=== PATIENT | male | born 1990 | race Caucasian/White ===

== ENCOUNTER 2018-07-17 15:41 | Outpatient (RCR) | payer OTHER, SELFPAY ==
--- NOTE | 2018-07-17 17:33 | PT.OIE ---
Current Diagnoses Pain in left knee (07/17/18) Provider Visit Care Team Role Provider Type GABRIELLA Jose Attending Provider Advanced Board Turner Primary Care Provider Specialty: Family Practice Address: [address] [place] [address], [facility] [place], [address] Email: [email or web address] Physical Therapy Initial Evaluation PT-OP-A Visit Information Start: 07/17/18 16:54 Freq: Status: Active Protocol: Document 07/17/18 16:00 HH (Rec: 07/17/18 17:33 HH [email or web address]) Out-Patient Physical Therapy Visit Information Visit Information Visit Type Initial Evaluation Visit Start Time 16:00 Visit Stop Time 16:45 Total Visit Minutes 45 Visit Number [id number] Number of BED SETTER Visits 0 Evaluation Information Evaluation Date 07/17/18 PT-OP-B Current Condition Start: 07/17/18 16:54 Freq: Status: Active Protocol: Document 07/17/18 16:00 HH (Rec: 07/17/18 17:33 HH [email or web address]) Current Condition History of Current Condition Onset Date 8 years ago Current Complaints L knee and ankle pain, difficulty in running and lifting History of Current Condition Pt had a severe ankle injury in 2011 while playing basketball. Pt dislocated his L ankle after a jump which he had to use a walker boot for 6 months after injury. Pt reports his L knee and ankle pain started every since then. Pt stated he has been having difficulty in doing exercises such as running, squatting, jumping who described his knee is very heavy and sore all the time. Basically doing exercise that more than his BW will excerbate his symptoms. Also stated Heat and rest help the most but ice will cause his muscles and knee joint tighter and stiff. Pt recently started to return to running as workout rountine but he c/o his knee pain starts after 100 yard. Pt has not had any x -ray and MRI screening. Prior Treatments and Tests did not have therapy before Treatment Goals Patient/Caregiver Goals 1. able to run 2miles 3times a week 2. able to run 2 miles under 14 minutes Prior Functional Status Baseline Function- ADL's Independent Baseline Function- Mobility Independent Current Functional Impairments (Reported) Functional Limitations- Work/School lifting heavy objects from the floor causes pain Functional Limitations- Recreation/ Pt recently started to return Hobbies to running as workout rountine but he c/o his knee pain starts after 100 yard PT-OP-C Subjective Start: 07/17/18 16:54 Freq: Status: Active Protocol: Document 07/17/18 16:00 HH (Rec: 07/17/18 17:33 [email or web address]) OP-PT Subjective Patient Comments Patient Comments I want to be able to run without knee pain. Patient Questionnaires Lower Extremity Functional Scale LEFS Score 57 LEFS Impairment 20 to 39% Impaired (Score 48- 62) PT-OP-F Manual Assessment Start: 07/17/18 16:54 Freq: Status: Active Protocol: Document 07/17/18 16:00 HH (Rec: 07/17/18 17:33 [email or web address]) Manual Assessments Soft Tissue Assessment Soft Tissue Mobility Assessment significant tenderness to pressure on L anterior tib, gastro complex Joint Mobility Assessment Joint Mobility Assessment reduced L calcaneal eversion PT-OP-G Mobility & Gait Start: 07/17/18 16:54 Freq: Status: Active Protocol: Document 07/17/18 16:00 HH (Rec: 07/17/18 17:33 HH [email or web address]) OP Gait Assessment Comments Gait Comments mild R hip drop during RLE swing phase in walking and jogging. Increased L ankle pronation during LLE stance phase PT-OP-J Posture/Palpation/Skin Start: 07/17/18 16:54 Freq: Status: Active Protocol: Document 07/17/18 16:00 HH (Rec: 07/17/18 17:33 [email or web address]) Posture Evaluation Position Standing Evaluation View Posterior Head/C-Spine Posture Forward Head T-Spine Posture Increased Kyphosis Pelvis Posture Anteriorly Tilted Weight Distribution Weight Shifted Right Hip Posture (L) Externally Rotated Knee Posture (L) Ext. Tibial Torsion (L) Excess Flexion Ankle/Foot Posture (R) Neutral (L) Supinated (L) Calcaneal Inversion Foot Arch (L) High Arch (R) Medium Arch PT-OP-K Range of Motion Start: 07/17/18 16:54 Freq: Status: Active Protocol: Document 07/17/18 16:00 HH (Rec: 07/17/18 17:33 [email or web address]) Knee Goniometric Range of Motion Knee Measured in Degrees Right Knee ROM WFL Yes Patient Position Supine Flexion Active (degrees) 140 Extension Active (degrees) 0 Left Knee ROM WFL Yes Patient Position Supine Flexion Active (degrees) 140 Extension Active (degrees) 2 Ankle and Foot Goniometric Range of Motion Ankle and Foot Measured in Degrees Right Active Ankle/Foot ROM WFL Yes Testing Position Supine Dorsiflexion with Knee Extended 20 Plantarflexion 60 Inversion 25 Eversion 15 Left Active Ankle/Foot ROM WFL Yes Testing Position Supine Dorsiflexion with Knee Extended 10 Plantarflexion 60 Inversion 20 Eversion 15 PT-OP-L Special Tests Start: 07/17/18 16:54 Freq: Status: Active Protocol: Document 07/17/18 16:00 (Rec: 07/17/18 17:33 [email or web address]) Special Tests Knee Special Tests Anterior Draw Test Results -ve Varus- 0 Degrees Test Results -ve Valgus- 25 Degrees Test Results -ve Varus- 25 Degrees Test Results -ve Valgus- 0 Degrees Test Results -ve Norberto Test Test Results -ve Apley's Compression Test Results -ve Brannon's Sign Test Results +ve Comments on L -ve on R Other Special Tests Special Tests squat = increaesd L knee valgus, signficant anterior weight shift Libyan DeadLift = significant ankle instability during single leg stance. PT-OP-M Strength Start: 07/17/18 16:54 Freq: Status: Active Protocol: Document 07/17/18 16:00 (Rec: 07/17/18 17:33 [email or web address]) Hip Strength Hip Manual Muscle Testing Right Flexion (L2) 5 Normal Extension (S1) 5 Normal Abduction 5 Normal Adduction 5 Normal Left Flexion (L2) 4- Good- Extension (S1) 4- Good- Abduction 4- Good- Adduction 4+ Good+ Knee Strength Knee Manual Muscle Testing Right Flexion (S2) 5 Normal Extension (L3) 5 Normal Left Flexion (S2) 3+ Fair+ Extension (L3) 4- Good- Ankle/Foot Strength Ankle and Foot Manual Muscle Testing Right Dorsiflexion (L4) 5 Normal Plantarflexion (S1) 5 Normal Inversion 5 Normal Eversion (S1) 5 Normal Left Dorsiflexion (L4) 3+ Fair+ Plantarflexion (S1) 3+ Fair+ Inversion 4 Good Eversion (S1) 3+ Fair+ PT-OP-Q Treatments Start: 03/22/19 16:54 Freq: Status: Active Protocol: Document 07/17/18 16:00 HH (Rec: 07/17/18 17:33 [email or web address]) Therapeutic Exercises Standing Exercises standing TKE Side right Equipment Used level 4 band Reps/Minutes 10 secs hold x 10 Comments L LE slight turning and beading machine operator to facilitate VMO RDL Standing Exercise Name single leg stance with RDL Side right Reps/Minutes 10 x 5 Comments cues on neutral foot and knee alignment, hip hinge, Manual Therapy Treatment Soft Tissue Mobilization L gastro complex Mobilization Type Strumming Sustained Pressure Trigger Point Release Intensity/Depth Moderate Body Position Supine L ant tib Mobilization Type Cross-Friction Strumming Sustained Pressure Trigger Point Release Intensity/Depth Moderate Body Position Supine PT-OP-T Assessment and Plan Start: 07/17/18 16:54 Freq: Status: Active Protocol: Document 07/17/18 16:00 (Rec: 07/17/18 17:33 [email or web address]) Physical Therapy Assessment Rehab Potential Rehabilitation Potential Excellent Evaluation Complexity Number of Personal Factors/Comorbidities 0 Number of Body Systems Impaired 1-2 Clinical Presentation at Evaluation Stable Impairments Impairments Activity Tolerance Functional Activities Functional Mobility Gait Pain Posture ROM Soft Tissue Mobility Strength Goals HEP Impairment pt does not have a HEP Longterm Goal (LTG) Pt will be able to comply to HEP daily to optimize his rehab outcome LTG Duration 6 weeks Running time Impairment increased time for a mile run Longterm Goal (LTG) to improve his time for a mile to 10 mins without symptoms LTG Duration 12 weeks strength Impairment impaired L hip, knee and ankle strength Short Term Goal (STG) Improve his overall LLE strength by 1/2 MMT to increase his stability of pelvis for running STG Duration 6 weeks Oven Equipment Repairer Goal (LTG) Improve his overall LLE strength by 1 MMT to increase his stability of pelvis for running LTG Duration 12 weeks LEFS Impairment LEFS score 57 (20-39 % impairment) Oven Equipment Repairer Goal (LTG) Improve his LEFS score to 0% to be able to run without pain and discomfort. LTG Duration 12 weeks Assessment Summary Assessment Pt is a 27 yo male presented to clinic with chronic L knee and ankle pain since 8 years after dislocation his ankle while playing basketball. Upon assessment, pt presents significant ROM loss on L ankle (DF> Inversion) and strength loss on LLE ( ankle > hip> knee) possibly due to his previous injury. Pt is positive with Arroyo's test but negative on ligament stress test and other joint structures. During static standing posture, pt primarily WB on his R LE with his L knee flexed and external rotated L tibia and L high foot arch. In dynamic movement assessment, pt presents a R hip drop during walking and running, and knee valgus during squat and RDL. Pt demonstrates significant L ankle and hip instability overall which possibly increase biomechanical stress on L knee. Pt will benefit from skilled PT for postural training, ankle and hip stability training , return to sport training, NM reeducation and overall LE strengthening. Physical Therapy Plan Frequency and Duration Frequency of Treatment 2x/Week Duration of Treatment 12 Plan of Care Start Date 07/17/18 Plan of Care End Date 10/17/18 Therapeutic Interventions Therapeutic Interventions Balance Training Gait Training Home Exercise Program Joint Mobilizations Manual Therapy Neuromuscular Re-education Patient/Caregiver Education Self-Care/Home Management Soft Tissue Mobilization Taping Therapeutic Activities Therapeutic Exercises Modalities Hot Packs Next Visit Focus/Plan Next Note Type Treatment Note Next Visit Plan Review RDL, TKE L ankle ROM, stability and strengthening single leg balance training L hip strengthening
--- NOTE | 2018-09-30 15:23 | PT.OPDS ---
Current Diagnoses Pain in left knee (07/17/18) Provider Visit Care Team Role Provider Type GABRIELLA Jose Attending Provider Advanced Step Down Nurse Primary Care Provider Specialty: Family Practice Address: [address] [place] [address], [facility] [place], [address] Email: [email or web address] Visit Number Visit Number Discharge Summary PT-OP-B Current Condition Start: 07/17/18 16:54 Freq: Status: Active Protocol: Document 07/17/18 16:00 HH (Rec: 07/17/18 17:33 HH [email or web address]) Current Condition History of Current Condition Onset Date 8 years ago Current Complaints L knee and ankle pain, difficulty in running and lifting History of Current Condition Pt had a severe ankle injury in 2011 while playing basketball. Pt dislocated his L ankle after a jump which he had to use a walker boot for 6 months after injury. Pt reports his L knee and ankle pain started every since then. Pt stated he has been having difficulty in doing exercises such as running, squatting, jumping who described his knee is very heavy and sore all the time. Basically doing exercise that more than his BW will excerbate his symptoms. Also stated Heat and rest help the most but ice will cause his muscles and knee joint tighter and stiff. Pt recently started to return to running as workout rountine but he c/o his knee pain starts after 100 yard. Pt has not had any x -ray and MRI screening. Prior Treatments and Tests did not have therapy before Treatment Goals Patient/Caregiver Goals 1. able to run 2miles 3times a week 2. able to run 2 miles under 14 minutes Prior Functional Status Baseline Function- ADL's Independent Baseline Function- Mobility Independent Current Functional Impairments (Reported) Functional Limitations- Work/School lifting heavy objects from the floor causes pain Functional Limitations- Recreation/ Pt recently started to return Hobbies to running as workout rountine but he c/o his knee pain starts after 100 yard PT-OP-C Subjective Start: 07/17/18 16:54 Freq: Status: Active Protocol: Document 09/30/18 15:23 HH (Rec: 09/30/18 15:23 HH [email or web address]) OP-PT Subjective Patient Comments Patient Comments Im doing much better after doing all my PT exercises from the first visit. I dont have knee pain at this point. Patient Reported Progress Improving PT-OP-F Manual Assessment Start: 07/17/18 16:54 Freq: Status: Active Protocol: Document 07/17/18 16:00 HH (Rec: 07/17/18 17:33 [email or web address]) Manual Assessments Soft Tissue Assessment Soft Tissue Mobility Assessment significant tenderness to pressure on L anterior tib, gastro complex Joint Mobility Assessment Joint Mobility Assessment reduced L calcaneal eversion PT-OP-G Mobility & Gait Start: 07/17/18 16:54 Freq: Status: Active Protocol: Document 07/17/18 16:00 HH (Rec: 07/17/18 17:33 [email or web address]) OP Gait Assessment Comments Gait Comments mild R hip drop during RLE swing phase in walking and jogging. Increased L ankle pronation during LLE stance phase PT-OP-J Posture/Palpation/Skin Start: 07/17/18 16:54 Freq: Status: Active Protocol: Document 07/17/18 16:00 HH (Rec: 07/17/18 17:33 [email or web address]) Posture Evaluation Position Standing Evaluation View Posterior Head/C-Spine Posture Forward Head T-Spine Posture Increased Kyphosis Pelvis Posture Anteriorly Tilted Weight Distribution Weight Shifted Right Hip Posture (L) Externally Rotated Knee Posture (L) Ext. Tibial Torsion (L) Excess Flexion Ankle/Foot Posture (R) Neutral (L) Supinated (L) Calcaneal Inversion Foot Arch (L) High Arch (R) Medium Arch PT-OP-K Range of Motion Start: 07/17/18 16:54 Freq: Status: Active Protocol: Document 07/17/18 16:00 HH (Rec: 07/17/18 17:33 [email or web address]) Knee Goniometric Range of Motion Knee Measured in Degrees Right Knee ROM WFL Yes Patient Position Supine Flexion Active (degrees) 140 Extension Active (degrees) 0 Left Knee ROM WFL Yes Patient Position Supine Flexion Active (degrees) 140 Extension Active (degrees) 2 Ankle and Foot Goniometric Range of Motion Ankle and Foot Measured in Degrees Right Active Ankle/Foot ROM WFL Yes Testing Position Supine Dorsiflexion with Knee Extended 20 Plantarflexion 60 Inversion 25 Eversion 15 Left Active Ankle/Foot ROM WFL Yes Testing Position Supine Dorsiflexion with Knee Extended 10 Plantarflexion 60 Inversion 20 Eversion 15 PT-OP-L Special Tests Start: 07/17/18 16:54 Freq: Status: Active Protocol: Document 07/17/18 16:00 HH (Rec: 07/17/18 17:33 [email or web address]) Special Tests Knee Special Tests Anterior Draw Test Results -ve Varus- 0 Degrees Test Results -ve Valgus- 25 Degrees Test Results -ve Varus- 25 Degrees Test Results -ve Valgus- 0 Degrees Test Results -ve Norberto Test Test Results -ve Apley's Compression Test Results -ve Brannon's Sign Test Results +ve Comments on L -ve on R Other Special Tests Special Tests squat = increaesd L knee valgus, signficant anterior weight shift Kyrgy[place] DeadLift = significant ankle instability during single leg stance. PT-OP-M Strength Start: 07/17/18 16:54 Freq: Status: Active Protocol: Document 07/17/18 16:00 HH (Rec: 07/17/18 17:33 [email or web address]) Hip Strength Hip Manual Muscle Testing Right Flexion (L2) 5 Normal Extension (S1) 5 Normal Abduction 5 Normal Adduction 5 Normal Left Flexion (L2) 4- Good- Extension (S1) 4- Good- Abduction 4- Good- Adduction 4+ Good+ Knee Strength Knee Manual Muscle Testing Right Flexion (S2) 5 Normal Extension (L3) 5 Normal Left Flexion (S2) 3+ Fair+ Extension (L3) 4- Good- Ankle/Foot Strength Ankle and Foot Manual Muscle Testing Right Dorsiflexion (L4) 5 Normal Plantarflexion (S1) 5 Normal Inversion 5 Normal Eversion (S1) 5 Normal Left Dorsiflexion (L4) 3+ Fair+ Plantarflexion (S1) 3+ Fair+ Inversion 4 Good Eversion (S1) 3+ Fair+ PT-OP-T Assessment and Plan Start: 07/17/18 16:54 Freq: Status: Active Protocol: Document 09/30/18 15:21 HH (Rec: 09/30/18 15:22 [email or web address]) Physical Therapy Plan Discharge Physical Therapy Discharge Reasons Patient Request Discharge Comments Called pt via phone. Pt states he is back to PLOF without experiencing knee pain. Requested to be D/c from PT.
== END 2018-10-09 10:35 | disposition home or self-care (01) ==
LOC: PHYS 15:41
PROVIDERS: PCP Internal Medicine; Visit Provider Internal Medicine
DX: M25.562 Pain in left knee (principal)
CPT/HCPCS: 97140; 97162

== ENCOUNTER → 2018-11-27 15:07 | Outpatient (CLI) | payer OTHER, SELFPAY ==
--- NOTE | 2018-11-27 15:09 | DI.RAD.S_ITS ---
PROCEDURE: XR ANKLE LT MIN 3V INDICATIONS: left lateral ankle pain TECHNIQUE: 3 views of the ankle were acquired. COMPARISON: None. FINDINGS: Bones: No fractures or dislocations. Ankle mortise is normally aligned. No suspicious bony lesions. Chronic ossicle projects just to the tip of the lateral malleolus. Tibiotalar degenerative spurring Soft tissues: No tibiotalar joint effusion. Achilles tendon appears normal. Lateral soft tissue swelling IMPRESSION: Sub-5 mm ossicle projects adjacent to the lateral malleolus although this appears chronic radiographically. Elsewhere, no acute fracture. If the patient's symptoms do not improve recommend followup radiographs in 10 days to assess for healing sclerosis/occult injury. Mild degenerative spurring. Lateral soft tissue swelling. Dictated by: Marlo Lopez M.D. on 11/27/2018 at 15:34 Approved by: Marlo Lopez M.D. on 11/27/2018 at 15:36
== END ==
PROVIDERS: PCP Internal Medicine; Visit Provider Physician Assistant
DX: M25.572 Pain in left ankle and joints of left foot (principal)
CPT/HCPCS: 73610

== ENCOUNTER 2019-10-15 16:09 | Emergency (ER) | payer OTHER, SELFPAY ==
[2019-10-15 16:30] VITALS: BP 134/80; PULSE 81; RESP 14; O2SAT 98; BMI 30.8
--- NOTE | 2019-10-15 16:50 | DI.CT.S_ITS ---
PROCEDURE: CT ABDOMEN PELVIS W CON INDICATIONS: right lower quadrant pain TECHNIQUE: After the administration of intravenous contrast, 5 mm thick sections acquired from the diaphragm to the symphysis. 5 mm coronal and sagittal reformats were acquired. For radiation dose reduction, the following was used: automated exposure control, adjustment of mA and/or kV according to patient size. COMPARISON: None. FINDINGS: Image quality: Excellent. ABDOMEN: Lung bases: Lung bases are clear. Heart size is normal. Solid organs: Liver is normal in size and enhancement. Gallbladder appears normal. Biliary system is non dilated. Pancreas enhances normally. Spleen is normal in size and enhancement. No adrenal nodules. Kidneys demonstrate normal size and enhancement, without hydronephrosis. Peritoneum and bowel: Bowel loops demonstrate normal wall thickness and caliber. No free fluid or air. Nodes and vessels: No retroperitoneal or mesenteric adenopathy by size criteria. Aorta and inferior vena cava are normal in size. Miscellaneous: No ventral hernias. PELVIS: Genitourinary: Bladder wall thickness is normal. Miscellaneous: No inguinal hernias or adenopathy. Bones: No suspicious bony lesions. No vertebral body compression fractures. IMPRESSION: A source of reported pain in knee right lower quadrant is not identified. A normal appendix is found, with origin from the cecum medial to the inferior cecal tip series 2 image 49. There is no sign of diverticulitis and no suspicion for referred pain from the urinary tract or spine. Dictated by: Hola Rollins M.D. on 10/15/2019 at 16:45 Approved by: Hola Rollins M.D. on 10/15/2019 at 16:47
[2019-10-15 16:56] LABS: Add Manual Diff / Slide Review NO; Basophils Absolute Auto 0 /uL (0-100); Basophils Percent Auto 0.3 % (0-2); Eosinophils Absolute Auto 300 /uL (0-450); Eosinophils Percent Auto 2.4 % (2-4); Hematocrit 38.9 % (41-53); Hemoglobin 13.9 g/dL (13.5-17.5); Lymphocytes Absolute Auto 2400 /uL (1100-4500); Lymphocytes Percent Auto 20.9 % (25-40); Mean Corpuscular HGB Conc 35.8 % (30-36); Mean Corpuscular Hemoglobin 32.8 PG (26-34); Mean Corpuscular Volume 91.8 fL (80-100); Monocytes Absolute Auto 1400 /uL (0-900); Monocytes Percent Auto 12.5 % (3-14); Neutrophils Absolute Auto 7200 /uL (1500-7000); Neutrophils Percent Auto 63.9 % (50-75); Platelet Count 286 X10^3/uL (150-400); Red Blood Cell Count 4.24 X10^6/uL (4.5-5.9); Red Cell Distribution Width 12.5 % (11.6-14.8); White Blood Cell Count 11.3 X10^3/uL (4.5-11.0)
[2019-10-15 17:03] LABS: INR 1.1 (0.9-1.3); Prothrombin Time 12.7 SECONDS (10.1-12.7)
[2019-10-15 17:06] LABS: PTT Partial Thromboplastin Tim 34 SECONDS (26.4-36.2)
[2019-10-15 17:08] LABS: Alanine Aminotransferase 69 IU/L (<50); Albumin 4.7 g/dL (3.5-5.0); Albumin Globulin Ratio 1.4 (1.0-2.8); Alkaline Phosphatase 75 U/L (38-126); Aspartate Aminotransferase 42 IU/L (17-59); BUN Creatinine Ratio 14.9 (6-22); Bilirubin Total 0.4 mg/dL (0.2-1.3); Blood Urea Nitrogen 17 mg/dL (9-20); Calcium 9.7 mg/dL (8.4-10.2); Carbon Dioxide 29 mmol/L (22-32); Chloride 101 mmol/L (98-107); Estimated Glomerular Filt Rate > 60.0 mL/min (>60); Globulin 3.4 g/dL (1.7-4.1); Glucose 85 mg/dL (70-100); HEMOLYSIS < 15 (0-50); Lipase 50 U/L (23-300); Potassium 3.9 mmol/L (3.4-5.1); Sodium 138 mmol/L (137-145); Total Protein 8.1 g/dL (6.3-8.2)
--- NOTE | 2019-10-15 20:06 | ED_ITS ---
HPI - Abdominal Pain General Chief Complaint: Abdominal Pain Stated Complaint: right side abdominal pain x3 days Time Seen by Provider: 10/15/19 19:59 Source: patient Mode of arrival: Ambulatory Limitations: no limitations History of Present Illness HPI narrative: 29-year-old male nonsmoker with history of hypothyroidism presents with his in the chief complaint of right lower quadrant pain with some radiation to his back for the past 3 days. He states it is probably a bit worse today than it had been a few days ago and does not recall much about its onset. It is worse when he moves and improves with rest. He denies any dysuria, frequency or urgency. He has had no nausea, vomiting or diarrhea. He has had no change in appetite. He denies any groin or testicular pain. MD complaint: abdominal pain Onset (ago): day(s) Pain Consistency: constant Location: RLQ Severity: moderate Quality: cramping and aching Radiation: R flank Relieving factors: rest Exacerbating factors: movement Associated symptoms: nausea Related Data Home Medications Medication Instructions Recorded Confirmed levothyroxine PO 11/27/18 11/27/18 Previous Rx's Medication Instructions Recorded ketorolac 10 mg PO Q6H PRN #14 tab 10/15/19 Allergies Allergy/AdvReac Type Severity Reaction Status Date / Time No Known Drug Allergies Allergy Verified 10/15/19 16:30 Review of Systems Constitutional Constitutional: Denies chills, Denies fatigue, Denies fever(s), Denies frequent falls, Denies lethargy and Denies weakness Eyes Eyes: Denies change in vision, Denies eye discharge, Denies irritation and Denies loss of vision ENT Ears, Nose, Mouth, and Throat: Denies change in voice, Denies dizziness, Denies neck pain, Denies sore throat and Denies throat swelling Cardiovascular Cardiovascular: Denies chest pain, Denies irregular heart rhythm, Denies lightheadedness, Denies palpitations, Denies dyspnea, Denies dyspnea on exertion and Denies orthopnea Respiratory Respiratory: Denies cough, Denies dyspnea, Denies dyspnea on exertion and Denies wheezing Gastrointestinal Gastrointestinal: Reports abdominal pain, Denies change in bowel habits, Denies diarrhea, Denies nausea and Denies vomiting Genitourinary Genitourinary: Reports flank pain Genitourinary: Reports flank pain Musculoskeletal Musculoskeletal: Denies neck pain and Denies numbness Integumentary/Breasts Skin/Breast: Denies pruritus, Denies erythema, Denies rash and Denies wounds Neurologic Neurologic: Denies behavioral changes, Denies confusion, Denies dizziness, Denies frequent falls, Denies loss of vision, Denies numbness and Denies weakness Psychiatric Psychiatric: Denies anxiety, Denies behavioral changes, Denies confusion, Denies depression, Denies homicidal ideation and Denies suicidal ideation Endocrine Endocrine: Denies fatigue, Denies flushing and Denies palpitations Hematologic/Lymphatic Hematologic/Lymphatic: Denies easy bruising Allergic/Immunologic Allergic/Immunologic: Denies urticaria, Denies throat swelling and Denies wheezing Patient History Social History Smoking Status: Never smoker Smoking Status: Never smoker alcohol intake frequency: a few times a month Substance Use Type: does not use Exam Narrative Exam Narrative: GENERAL: [29] year old patient appears stated age. Well-nouris hed, well-developed patient, in mild distress. HEAD: Atraumatic. Normocephalic. EYES: Pupils equal round and reactive. Extraocular motions intact. No scleral icterus. No injection or drainage. ENT: Nose without bleeding, purulent drainage. Throat without erythema, tonsillar hypertrophy or exudate. Airway patent. NECK: Trachea midline. Non tender CARDIOVASCULAR: Regular rate and rhythm without murmurs, gallops, or rubs. RESPIRATORY: Clear to auscultation. Breath sounds equal bilaterally. No wheezes, rales, or rhonchi. GASTROINTESTINAL: Abdomen soft, mild right lower quadrant tenderness, no ndistended. : Patient examined while standing, no evidence of inguinal hernia, no testicular pain, swelling or discoloration EXTREMITIES: No edema or joint tenderness. BACK: Nontender without deformity or crepitance. Mild right CVA tenderness NEURO: AOx3. SKIN: No rash or erythema of visible areas Initial Vital Signs Initial Vital Signs: Vital Signs Pulse Rate 81 10/15/19 16:30 Respiratory Rate 14 10/15/19 16:30 Blood Pressure 134/80 10/15/19 16:30 Pulse Oximetry 98 10/15/19 16:30 Course Orders Ordered: ED Orders 10/15/19 16:32 EKG-12 Lead Stat 10/15/19 16:43 Complete Blood Count AUTO DIFF Stat Comprehensive Metabolic Panel Stat Lipase Stat Partial Thromboplastin Time Stat Prothrombin Time INR Stat 10/15/19 16:50 CT abdomen pelvis w con Stat Vital Signs Vital signs: Vital Signs - 8 hr 10/15/19 16:30 Pulse Rate 81 Respiratory Rate 14 Blood Pressure 134/80 Pulse Oximetry 98 MDM - Abdominal Pain Lab Data Result diagrams: 10/15/19 16:43 10/15/19 16:43 Labs: Lab Results 10/15/19 10/15/19 10/15/19 Range/Units 16:43 16:43 16:43 WBC 11.3 H (4.5-11.0) X10^3/uL RBC 4.24 L (4.5-5.9) X10^6/uL Hgb 13.9 (13.5-17.5) g/dL Hct 38.9 L (41-53) % MCV 91.8 (80-100) fL MCH 32.8 (26-34) PG MCHC 35.8 (30-36) % RDW 12.5 (11.6-14.8) % Plt Count 286 (150-400) X10^3/uL Neut % (Auto) 63.9 (50-75) % Lymph % (Auto) 20.9 L (25-40) % Mclennan % (Auto) 12.5 (3-14) % Eos % (Auto) 2.4 (2-4) % Baso % (Auto) 0.3 (0-2) % Neut # (Auto) 7200 H (0481-1809) /uL Lymph # (Auto) 2400 (6639-3117) /uL Mclennan # (Auto) 1400 H (0-900) /uL Eos # (Auto) 300 (0-450) /uL Baso # (Auto) 0 (0-100) /uL PT 12.7 (10.1-12.7) SECONDS INR 1.1 (0.9-1.3) APTT 34 (26.4-36.2) SECONDS Sodium 138 (137-145) mmol/L Potassium 3.9 (3.4-5.1) mmol/L Chloride 101 (98-107) mmol/L Carbon Dioxide 29 (22-32) mmol/L BUN 17 (9-20) mg/dL Creatinine 1.14 (0.66-1.25) mg/dL Estimated GFR > 60.0 (>60) mL/min BUN/Creatinine Ratio 14.9 (6-22) Glucose 85 (70-100) mg/dL Calcium 9.7 (8.4-10.2) mg/dL Total Bilirubin 0.4 (0.2-1.3) mg/dL AST 42 (17-59) IU/L ALT 69 H (<50) IU/L Alkaline Phosphatase 75 (38-126) U/L Total Protein 8.1 (6.3-8.2) g/dL Albumin 4.7 (3.5-5.0) g/dL Globulin 3.4 (1.7-4.1) g/dL Albumin/Globulin Ratio 1.4 (1.0-2.8) Lipase 50 (23-300) U/L Point of care testing: Urine Dip Bedside Urine Glucose Negative Bedside Urine Bilirubin - Negative Bedside Urine Ketone - Negative Urine Specific [place] 1.010 Bedside Urine Occult Blood - Negative Bedside Urine pH 6.0 Bedside Urine Protein - Negative Bedside Urine Urobilinogen - Negative Bedside Urine Nitrite - Negative Bedside Urine Leukocytes - Negative Esterase Imaging Data CT scan - abdomen/pelvis: Radiologist's Impression: Javi Delacruz John 29 M 1990 [place] [address] CT Scan Report Signed Patient: Javi Delacruz DeanMR#: [id number] : 1990Acct:[id number] Age/Sex: te of Service: 10/15/19 Loc: ED Accession Number: [id number] Procedure: CT abdomen pelvis w con Ordering Provider: Don Moseley MD PROCEDURE: CT ABDOMEN PELVIS W CON INDICATIONS: right lower quadrant pain TECHNIQUE: After the administration of intravenous contrast, 5 mm thick sections acquired from the diaphragm to the symphysis. 5 mm coronal and sagittal reformats were acquired. For radiation dose reduction, the following was used: automated exposure control, adjustment of mA and/or kV according to patient size. COMPARISON: None. FINDINGS: Image quality: Excellent. ABDOMEN: Lung bases: Lung bases are clear. Heart size is normal. Solid organs: Liver is normal in size and enhancement. Gallbladder appears normal. Biliary system is non dilated. Pancreas enhances normally. Spleen is normal in size and enhancement. No adrenal nodules. Kidneys demonstrate normal size and enhancement, without hydronephrosis. Peritoneum and bowel: Bowel loops demonstrate normal wall thickness and caliber. No free fluid or air. Nodes and vessels: No retroperitoneal or mesenteric adenopathy by size criteria. Aorta and inferior vena cava are normal in size. Miscellaneous: No ventral hernias. PELVIS: Genitourinary: Bladder wall thickness is normal. Miscellaneous: No inguinal hernias or adenopathy. Bones: No suspicious bony lesions. No vertebral body compression fractures. IMPRESSION: A source of reported pain in knee right lower quadrant is not i dentified. A normal appendix is found, with origin from the cecum medial to the inferior cecal tip series 2 image 49. There is no sign of diverticulitis and no suspicion for referred pain from the urinary tract or spine. Dictated by: Hola Rollins M.D. on 10/15/2019 at 16:45 Approved by: Hola Rollins M.D. on 10/15/2019 at 16:47 Discharge Plan Departure Patient Disposition: Home Clinical Impression: Abdominal pain, acute, right lower quadrant Discharge Date/Time: 10/15/19 20:30 Instructions: DI for Abdominal Pain-Adult Activity Restrictions/Additional Instructions: *You have been diagnosed with [right lower quadrant pain, CT scan demonstrates no appendicitis or kidney stone] *What to do: *Take medications as directed *Follow up with your primary care provider in 2-3 days, call for an appointment. Let them know you were seen in the Emergency Department and that we ask that you be seen in follow up *Return to ER if you should have any new, worsening or concerning symptoms Prescriptions: New ketorolac 10 mg tablet 10 mg PO Q6H PRN (Reason: pain) Qty: 14 RF: 0 No Action levothyroxine PO RF: 0 Referrals: Sheyla Olvera ARNP [Primary Care Provider] -
[2019-10-15 20:13] VITALS: BP 154/82; PULSE 67; RESP 16; O2SAT 96
== END 2019-10-15 20:30 | disposition home or self-care (01) ==
PROVIDERS: Emergency Medicine; Emergency Provider Emergency Medicine; PCP Internal Medicine
DX: R10.31 Right lower quadrant pain (principal); R11.0 Nausea
CPT/HCPCS: 74177; 80053; 81003; 83690; 85025; 85610; 85730; 93005; 99284

== ENCOUNTER → 2022-02-21 18:43 | Outpatient (CLI) | payer OTHER, SELFPAY ==
--- NOTE | 2022-02-21 | DI.MRI.S_ITS ---
PROCEDURE: MR BRAIN (PITUITARY) WWO CON INDICATIONS: LOW TESTOSTERONE TECHNIQUE: Noncontrast sagittal and axial FLAIR, axial gradient echo, axial diffusion and ADC through the brain. Thin-slice sagittal and coronal T1 spin echo, coronal T2 fast spin echo through the pituitary. After the administration contrast, optional dynamic coronal T1 spin echo, thin-slice coronal and sagittal T1 spin echo images through the pituitary fossa; axial and coronal and sagittal T1 spin echo with fat saturation through the brain. COMPARISON: None. FINDINGS: Image quality: Excellent. Pituitary Gland: Along the inferior aspect of the pituitary gland, there is a focus seen which demonstrates relatively poor enhancement, which measures 7 x 5 x 4 mm, and can be seen on series 18, image 3 and on series 22, image 6. The pituitary gland otherwise demonstrates normal signal and bulk. The pituitary stalk and infundibulum have an unremarkable appearance. A normal appearing pituitary bright spot is seen posteriorly on the precontrast sagittal T1-weighted images. The optic chiasm and the ventral forebrain have an unremarkable appearance. CSF Spaces: Ventricles are normal in size and shape. Basal cisterns are patent. No extra-axial fluid collections. Brain: No intracranial bleeds or mass effects. No abnormal intracranial enhancement. Anderson-white matter interface is intact. Diffusion weighted images demonstrate no acute ischemic insults. Brainstem is normal. Normal intravascular flow voids are present. Skull and face: Calvarial marrow is normal in signal. Orbits appear normal. Sinuses: Sinuses and mastoids are clear. IMPRESSION: 7 mm focus of relatively poor enhancement along the inferior aspect of pituitary. Differential diagnosis for this focus in this patient with this given history includes a microadenoma. Please consider short-term follow-up. Dictated by: Frederick Obrien M.D. on 02/22/2022 at 9:46 Approved by: Frederick Obrien M.D. on 02/22/2022 at 9:49
== END ==
PROVIDERS: PCP Internal Medicine; Referring Provider Internal Medicine; Visit Provider Internal Medicine
DX: R79.81 Abnormal blood-gas level (principal); E29.1 Testicular hypofunction
CPT/HCPCS: 70553; A9579